=== PATIENT | male | born 1975 | race Caucasian/White ===

== ENCOUNTER 2017-02-05 09:59 | Emergency (ER) | payer BC ==
[~2017-02-05] VITALS: Ht 182.9 cm; Wt 99.8 kg
[2017-02-05 11:03] VITALS: BP 137/88
== END 2017-02-05 11:03 | disposition home or self-care (01) ==
LOC: ER 10:02
DX: K64.4 Residual hemorrhoidal skin tags (principal); K62.5 Hemorrhage of anus and rectum; I48.91 Unspecified atrial fibrillation
CPT/HCPCS: A4606; Z7610